=== PATIENT | male | born 1945 | race Asian ===

== ENCOUNTER 2020-04-17 15:39 | Emergency (ER) | payer OTHER ==
[~2020-04-17] VITALS: Ht 177.8 cm; Wt 68.0 kg
[2020-04-17 16:00] VITALS: BP_SYST 128
--- NOTE | 2020-04-17 16:00 | NUR ---
Patient triaged and placed in ER tent. VSS and patient appears in no acute distress at this time. Awaiting available bed, and MD notified of need for MSE.
--- NOTE | 2020-04-17 16:01 | NUR ---
Patient was recently diagnosed with COVID-19 and is complaining of sore throat and fever controlled with tylenol. No other complaints at this time.
--- NOTE | 2020-04-17 16:02 | NUR ---
ER Dr. Jung in tent examining patient.
[2020-04-17 16:15] VITALS: BP_SYST 128
--- NOTE | 2020-04-17 16:15 | NUR ---
Patient given written and verbal discharge instructions and verbalizes understanding. ER MD discussed with patient the results and treatment provided. Patient in stable condition. ID arm band removed. Rx of hydroxychloroquine,dexamethasone given. Patient educated on pain management and to follow up with PMD. Pain Scale 3/10, Dr. Jung is aware. Opportunity for questions provided and answered. Medication side effect fact sheet provided.
== END 2020-04-17 16:15 | disposition home or self-care (01) ==
LOC: SED 15:39
DX: U07.1 COVID-19 (principal); B34.9 Viral infection, unspecified; E11.9 Type 2 diabetes mellitus without complications
CPT/HCPCS: 99283

== ENCOUNTER 2020-04-21 08:39 | Inpatient (IN) | payer OTHER, SELFPAY ==
[~2020-04-21] VITALS: Ht 177.8 cm; Wt 67.1 kg
[2020-04-21 08:53] VITALS: BP_SYST 124
--- NOTE | 2020-04-21 09:47 | NUR ---
AMBULATED TO BED 5
--- NOTE | 2020-04-21 10:00 | NUR ---
PT ARRIVES FROM HOME W/ INCREASING SOB AND COUGH. PT REPORTS MILD FEVER. CURRENTLY AFEBRILE. BONE CRUSHER PLACED. WILL CONTINUE TO MONITOR
--- NOTE | 2020-04-21 10:28 | NUR ---
covid swab collected and sent to the lab
[2020-04-21] MEDS ORDERED: cefTRIAXone 1 GM in D5W 50 ML IV ONE (10:30)
[2020-04-21] MEDS ORDERED: AZITHROMYCIN 500 MG in NS 250 ML IV ONE (10:30)
[2020-04-21 10:33] LABS: BASOPHILS % (AUTO) 0.1 % (0.0-2.0); HEMATOCRIT 43.9 % (36-54); HEMOGLOBIN 14.7 g/dL (14.0-18.0); LYMPHOCYTES # (AUTO) 0.3 K/uL (1.0-5.5); LYMPHOCYTES % (AUTO) 4.1 % (20.5-51.5); MEAN CORPUSCULAR HEMOGLOBIN 30 pg (27-31); MEAN CORPUSCULAR HGB CONC 33 % (32-36); MEAN CORPUSCULAR VOLUME 88 fL (79.0-98.0); MONOCYTES # (AUTO) 0.4 K/uL (0.0-1.0); MONOCYTES % (AUTO) 5.5 % (1.7-9.3); NEUTROPHILS # (AUTO) 6.3 K/uL (1.8-7.7); NEUTROPHILS % (AUTO) 90.3 % (40.0-70.0); PLATELET COUNT (AUTO) 319 K/uL (130-430); RED BLOOD CELL COUNT(AUTO) 4.97 MIL/uL (4.2-6.2); RED CELL DISTRIBUTION WIDTH 13.7 % (9.0-15.0)
[2020-04-21 10:37] LABS: ANION GAP 13 (5-15); CALCIUM 9.1 mg/dL (8.4-11.0); CHLORIDE 99 mmol/L (98-107); CREATININE 0.96 mg/dL (0.55-1.30); GLUCOSE 179 mg/dL (70-99); POTASSIUM 4.6 mmol/L (3.5-5.1); SODIUM SERUM 135 mmol/L (136-145); UREA NITROGEN, BLOOD 31 mg/dL (8-21)
[2020-04-21 10:42] LABS: ALANINE AMINOTRANSFERASE 25 U/L (12-78); ALBUMIN 2.6 g/dL (3.4-4.8); ASPARTATE AMINOTRANSFERASE 34 U/L (10-37); LACTATE DEHYDROGENASE 405 U/L (85-227); TOTAL BILIRUBIN 0.7 mg/dL (0.0-1.0)
[2020-04-21 10:43] LABS: PROTHROMBIN TIME 9.8 SECS (9.5-12.5)
[2020-04-21] MEDS ORDERED: PIPERACILLIN/TAZO 3.375 GM in NS 50 ML IV ONE (10:45)
[2020-04-21] MEDS ORDERED: VANCOMYCIN HCL 1,000 MG in NS 250 ML IV ONE (10:45)
[2020-04-21 10:55] LABS: C-REACTIVE PROTEIN QUANT 5.7 mg/dL (0-0.5)
[2020-04-21] MEDS ORDERED: PIPERACILLIN/TAZOBACTAM 3.375 GM/VIAL (ZOSYN) IV ONE (11:07)
--- NOTE | 2020-04-21 11:21 | NUR ---
Zosyn currently infusing per md order
[2020-04-21] MEDS ORDERED: VANCOMYCIN HCL 1000 MG/VIAL IV ONE (11:56)
[2020-04-21 12:21] LABS: BILIRUBIN,URINE NEGATIVE (NEGATIVE); BLOOD, URINE NEGATIVE (NEGATIVE); CLARITY/URINE CLEAR (CLEAR); COLOR,URINE YELLOW (YELLOW); GLUCOSE,URINE 3+ (NEGATIVE); KETONES,URINE 1+ (NEGATIVE); LEUKOCYTE ESTERASE ,URINE NEGATIVE (NEGATIVE); NITRITE, URINE NEGATIVE (NEGATIVE); PROTEIN URINE TRACE (NEGATIVE); UROBILINOGEN,URINE 0.2 (0.2-1.0)
--- NOTE | 2020-04-21 12:30 | NUR ---
CARE ENDORSED TO BRANDY EPSTEIN
--- NOTE | 2020-04-21 12:39 | NUR ---
ELYSIA TO ASSUME CARE, CALM, ALERT, RESP UNLABORED, SKIN WARM AND DRY. CLEAR MENTATION AND SPEECH. DENIES CP/SOB. AWARE OF ADMISSION, UPDATE GIVEN
--- NOTE | 2020-04-21 13:22 | NUR ---
COVID SWAB COLLECTED AND SENT TO LAB
--- NOTE | 2020-04-21 13:45 | NUR ---
calm, alert, resp unlabored, skin warm and dry. communicates clearly in full complete sentences, no distress, denies cp/sob
[2020-04-21] MEDS ORDERED: POTASSIUM CHLORIDE 20 MEQ TAB.PRT.SR PO PRN (14:00)
[2020-04-21] MEDS ORDERED: ONDANSETRON HCL 4 MG/2 ML VIAL IVP PRN (14:00)
[2020-04-21] MEDS ORDERED: LORazepam 2 MG/ML VIAL IVP PRN (14:00)
[2020-04-21] MEDS ORDERED: DOCUSATE SODIUM 100 MG CAPSULE PO PRN (14:00)
[2020-04-21] MEDS ORDERED: ACETAMINOPHEN 325 MG TABLET PO PRN (14:00)
[2020-04-21] MEDS ORDERED: MUPIROCIN 2% TOPICAL OINTMENT 22 GM NS PRN (14:00)
[2020-04-21] MEDS ORDERED: MAGNESIUM SULFATE 50 ML IV PRN (14:00)
--- NOTE | 2020-04-21 15:20 | NUR ---
CONSULT: PAGED DR SMITH BY PAGER REASON FOR CONSULT- COVID PNA
--- NOTE | 2020-04-21 15:21 | NUR ---
CONSULT: PAGED DR POST SPOKE WITH WOJCIECH REASON FOR CONSULT- COVID PNA
[2020-04-21] MEDS: NACL 0.9% 1,000 ML IV SCH (16:12)
[2020-04-21] MEDS: ENOXAPARIN SODIUM 80 MG/0.8 ML SYRINGE SUBCUT SCH (16:13)
[2020-04-21] MEDS: DECADRON 4 MG TABLET PO SCH (16:13)
[2020-04-21] MEDS ORDERED: ASCORBIC ACID 500 MG TABLET PO ONE (16:15)
[2020-04-21] MEDS ORDERED: CHOLECALCIFEROL (VITAMIN D3) 2,000 UNIT TABLET PO ONE (16:15)
[2020-04-21] MEDS: ASCORBIC ACID 500 MG TABLET PO SCH ×2 (17:46→20:01)
--- NOTE | 2020-04-21 18:03 | NUR ---
ALERT, CALM, EASILY AROUSED, RESP UNLABORED, SKIN WARM AND DRY. TOLERATING PO WELL
--- NOTE | 2020-04-21 18:13 | NUR ---
BLOOD CONSENT OBTAINED
--- NOTE | 2020-04-21 19:23 | NUR ---
SITTING UP EATING MEAL. CALM, ALERT, NO DISTRESS, DENIES CP/SOB
[2020-04-21] MEDS ORDERED: cefTRIAXone 1 GM VIAL ONE (19:55)
[2020-04-21] MEDS: cefTRIAXone 1 GM in D5W 50 ML IV SCH (20:00)
[2020-04-21] MEDS ORDERED: ASCORBIC ACID 500 MG TABLET PO SCH (21:00)
--- NOTE | 2020-04-21 21:25 | NUR ---
PLASMA STARTED, SEPTEMBER TO COSIGN
--- NOTE | 2020-04-21 23:17 | NUR ---
CONVALESCENT PLASMA COMPLETED, TOLERATED WELL
--- NOTE | 2020-04-21 23:36 | NUR ---
Note hussain in EDM - 04/21/20 at 2337 by [id number] Patient will be admitted to care of Dr. Weston. Admitted to TELE unit. Will go to room 123. Belongings list completed. Complete and up to date summary report printed. SBAR report to be given at bedside with opportunity for questions.
--- NOTE | 2020-04-21 23:37 | NUR ---
Patient will be admitted to care of Dr. Weston. Admitted to TELE unit. Will go to room 126B. Belongings list completed. Complete and up to date summary report printed. SBAR report to be given at bedside with opportunity for questions.
--- NOTE | 2020-04-21 23:53 | NUR ---
ADMIT NOTE Received pt from ER to the floor with a diagnosis of covid pna. Admission process initiated. patient oriented to pain management, safety and call light-teach back done.
--- NOTE | 2020-04-22 00:30 | NUR ---
INITIAL NOTE PT IS ON BED, ALERT, AWAKE, ORIENTED X 4. NO PAIN. NO SOB AT REST, PT IS ON O2 4L VIA NC SATING 90% VITAL SIGN ARE WNL. IVF INFUSING TO RIGHT AC. NO SIGN OF INFILTRATION. NO SKIN BREAKDOWN. DISCUSS TO PT PLAN OF CARE AND HIS MEDICATION. DISCUSS ABOUT HIS COVID ISOLATION. PT VERBALIZED UNDERSTANDING. NEEDS ATTENDED. CALL LIGHT IN REACH, SIDE RAILS UP LOW BED POSITION AND ALARM COVID ISOLATION. WILL MONITOR. PT THROUGHOUT THE SHIFT.
[2020-04-22] MEDS: ZOLPIDEM TARTRATE 5 MG TABLET PO PRN (00:49)
[2020-04-22 01:40] VITALS: BP_SYST 142
--- NOTE | 2020-04-22 02:06 | NUR ---
SLEEPING, COMFORTABLE, NO SIGN OF DISTRESS. STABLE O2 ON MONITOR, PT IS ON SIMPLE MASK AT 6L TO KEEP O2 ABOVE 90%. NEEDS ATTENDED. COVID ISOLATION.
[2020-04-22] MEDS: NACL 0.9% 1,000 ML IV SCH ×2 (02:17→14:56)
[2020-04-22] MEDS: ENOXAPARIN SODIUM 80 MG/0.8 ML SYRINGE SUBCUT SCH ×2 (02:17→14:50)
--- NOTE | 2020-04-22 03:27 | NUR ---
PAGED PAGED DOCTOR POST
--- NOTE | 2020-04-22 03:28 | NUR ---
page dr. almanzar- to clarify the convalescent plasma. waiting for call back.
--- NOTE | 2020-04-22 04:00 | NUR ---
pt is resting, no sob, not distress. no cough, 98% o2 saturation on mask at 6l. covid isolation.
--- NOTE | 2020-04-22 06:03 | NUR ---
sleeping, comfortable. no sob, no cough, covid isolation.
--- NOTE | 2020-04-22 06:20 | NUR ---
COVID PLASMA INITIATION: Consent signed per patient agreeing to administration of blood. Blood has been type and crossmatched. Blood sent from blood bank. Information on unit of blood checked against patient wristband at bedside by two nurses. All information matches. Patient or responsible democrat informed of potential complications associated with blood transfusion. Informed of possible transfusion reaction symptoms. Aware of need to notify nurse at once of itching, shortness of breath, flushing, feeling of impending doom, or other symptoms not previously present. Vital signs taken within 5 minutes prior to initiation of transfusion. RN will remain with patient for first 15 minutes of transfusion at which time vital signs will be re-assessed.
--- NOTE | 2020-04-22 07:38 | NUR ---
closing; pt is resting, no sob, no distress. convalescent plasma completed no transfusion reaction, stable vital sign. needs attended, covid isolation. call light in reach side rails up. low bed position. sbar report given to margot alex.
[2020-04-22 07:41] VITALS: BP_SYST 135
--- NOTE | 2020-04-22 08:00 | NUR ---
Received patient alert oriented on facemask 4 liter , changed to nasal cannula 6 liter while eating oxygen saturation 89%, patient is weak needs help to go edge of the bed to urinate, fall risk safety/fall precaution initiated verbalized understanding, needs attended.
[2020-04-22 08:01] LABS: BASOPHILS % (AUTO) 0.1 % (0.0-2.0); HEMATOCRIT 41.5 % (36-54); HEMOGLOBIN 13.4 g/dL (14.0-18.0); LYMPHOCYTES # (AUTO) 0.5 K/uL (1.0-5.5); LYMPHOCYTES % (AUTO) 6.8 % (20.5-51.5); MEAN CORPUSCULAR HEMOGLOBIN 29 pg (27-31); MEAN CORPUSCULAR HGB CONC 32 % (32-36); MEAN CORPUSCULAR VOLUME 90 fL (79.0-98.0); MONOCYTES # (AUTO) 0.3 K/uL (0.0-1.0); MONOCYTES % (AUTO) 3.5 % (1.7-9.3); NEUTROPHILS # (AUTO) 6.8 K/uL (1.8-7.7); NEUTROPHILS % (AUTO) 89.6 % (40.0-70.0); PLATELET COUNT (AUTO) 297 K/uL (130-430); RED BLOOD CELL COUNT(AUTO) 4.61 MIL/uL (4.2-6.2); RED CELL DISTRIBUTION WIDTH 13.2 % (9.0-15.0); WHITE BLOOD COUNT (AUTO) 7.5 K/uL (4.8-10.8)
[2020-04-22] MEDS: CHOLECALCIFEROL (VITAMIN D3) 2,000 UNIT TABLET PO SCH (08:05)
[2020-04-22] MEDS: AZITHROMYCIN 250 MG TABLET PO SCH (08:05)
[2020-04-22] MEDS: ASCORBIC ACID 500 MG TABLET PO SCH ×3 (08:05→21:10)
[2020-04-22 08:12] LABS: ALANINE AMINOTRANSFERASE 24 U/L (12-78); ALBUMIN 2.3 g/dL (3.4-4.8); ANION GAP 7 (5-15); ASPARTATE AMINOTRANSFERASE 27 U/L (10-37); BILIRUBIN,DIRECT 0.2 mg/dL (0.0-0.3); CALCIUM 8.4 mg/dL (8.4-11.0); CHLORIDE 103 mmol/L (98-107); CREATININE 0.93 mg/dL (0.55-1.30); GLUCOSE 83 mg/dL (70-99); POTASSIUM 3.8 mmol/L (3.5-5.1); SODIUM SERUM 139 mmol/L (136-145); TOTAL BILIRUBIN 0.4 mg/dL (0.0-1.0); UREA NITROGEN, BLOOD 22 mg/dL (8-21)
[2020-04-22 08:20] LABS: C-REACTIVE PROTEIN QUANT 2.9 mg/dL (0-0.5)
[2020-04-22] MEDS ORDERED: ASCORBIC ACID 500 MG TABLET PO SCH (09:00)
[2020-04-22 09:49] LABS: ERYTHROCYTE SEDIMENTATION RATE 43 MM/HR (0-15)
--- NOTE | 2020-04-22 10:15 | NUR ---
Respiratory Facemask hanged to Oxymizer 8/liter saturation 98 %, kept on continuos pulse oximeter.
[2020-04-22 11:29] VITALS: BP_SYST 141
--- NOTE | 2020-04-22 11:30 | NUR ---
Rounds With frequent dry cough, oxygen saturation 98% with 8 liters/oximizer , encouraged patient to lie to side intermittently , or proning if tolerated verbalized understanding.
--- NOTE | 2020-04-22 13:48 | NUR ---
To bedside commode with minimal assistance with generalized weakness,had bowel movement perineal care given .
--- NOTE | 2020-04-22 14:30 | NUR ---
Per Dr. Hendrickson total of 2 units of convalescent plasma only.
[2020-04-22] MEDS: DECADRON 4 MG TABLET PO SCH (14:50)
[2020-04-22 14:59] VITALS: BP_SYST 147
--- NOTE | 2020-04-22 15:52 | NUR ---
PATIENT RESTING: Patient resting quietly. No acute distress noted. Vital signs within normal range.
[2020-04-22] MEDS: guaiFENesin 200 MG/10 ML UDC PO PRN ×2 (15:53→21:10)
[2020-04-22 16:09] VITALS: BP_SYST 147
[2020-04-22] MEDS: cefTRIAXone 1 GM in D5W 50 ML IV SCH (16:25)
[2020-04-22] MEDS ORDERED: FENO160 PO (18:23)
[2020-04-22] MEDS ORDERED: [UNRECOGNIZED DRUG - OTHER] PO (18:23)
[2020-04-22] MEDS ORDERED: [UNRECOGNIZED DRUG - OTHER] PO (18:23)
[2020-04-22] MEDS ORDERED: GLU500 PO (18:23)
[2020-04-22] MEDS ORDERED: Toujeo SUBCUT (18:23)
--- NOTE | 2020-04-22 18:23 | NUR ---
ALL home medication list was given by Britany phone no. [phone]
--- NOTE | 2020-04-22 18:24 | NUR ---
Patient eating dinner no sign of acute distress oxygen saturation 93% with 8 liters/oximizer
--- NOTE | 2020-04-22 19:10 | NUR ---
OPENING NOTE: RECEIVED SBAR REPORT FROM DAY SHIFT RN. PATIENT IS RESTING IN THE BED. BREATHING EVEN AND UNLABORED ON 8 L OF OXYMIZER. NO S/S ACUTE DISTRESS NOTED AT THIS TIME. IVF INFUSING ORDERED RATE. VITAL SIGNS WITHIN NORMAL LIMITS. SAFETY AND FALL PRECAUTIONS IN PLACE. CALL LIGHT IS WITH PATIENT. WILL CONTINUE TO MONITOR.
[2020-04-22 20:00] VITALS: BP_SYST 110
--- NOTE | 2020-04-22 21:15 | NUR ---
MED PASS: PATIENT GIVEN SCHEDULED MEDS. PATIENT TOLERATED TAKING PO MEDS WELL. NO S/S ACUTE DISTRESS NOTED AT THIS TIME. WILL CONTINUE MONITORING PATIENT.
--- NOTE | 2020-04-22 23:15 | NUR ---
RN ROUNDS: PATIENT IS IN THE BED, SLEEPING. NO S/S RESPIRATORY DISTRESS NOTED AT THIS TIME. SAFETY PRECAUTIONS IN PLACE. CALL LIGHT IS WITH PATIENT. WILL MONITOR PATIENT FOR ANY CHANGES.
[2020-04-23] VITALS: BP_SYST 133
--- NOTE | 2020-04-23 00:45 | NUR ---
RN ROUNDS: PATIENT IS IN THE BED, SLEEPING AND STABLE. NO S/S ACUTE DISTRESS NOTED. CALL LIGHT IS WITH PATIENT. WILL MONITOR PATIENT FOR ANY CHANGES.
[2020-04-23] MEDS: ENOXAPARIN SODIUM 80 MG/0.8 ML SYRINGE SUBCUT SCH ×2 (02:10→13:41)
--- NOTE | 2020-04-23 02:17 | NUR ---
RN ROUNDS: PATIENT IS BREATHING UNLABORED AND EVEN ON 8 L OF OXIMIZER. PATIENT DOES NOT EXHIBIT ANY S/S ACUTE DISTRESS AT THIS TIME. CALL LIGHT IS WITH PATIENT. WILL MONITOR.
[2020-04-23] MEDS: NACL 0.9% 1,000 ML IV SCH ×2 (03:30→16:34)
--- NOTE | 2020-04-23 04:22 | NUR ---
RN ROUNDS: PATIENT IS IN THE BED. STABLE, NO S/S ACUTE DISTRESS NOTED AT THIS TIME. CALL LIGHT IS WITH PATIENT. FALL AND SAFETY PRECAUTIONS MAINTAINED. WILL MONITOR.
--- NOTE | 2020-04-23 07:07 | NUR ---
CLOSING NOTE: PATIENT IN BED, SLEEPING. NO S/S ACUTE DISTRESS NOTED. RESPIRATION IS EVEN AND UNLABORED ON 8 L OF OXYGEN VIA OXYMIZER. IVF INFUSING ORDERED RATE. NO SIGN OF INFILTRATION NOTED. SAFETY AND FALL PRECAUTIONS MAINTAINED. ALL NEEDS MET. ENDORSED PATIENT CARE TO DAY SHIFT RN.
[2020-04-23 07:43] LABS: HEMATOCRIT 42.8 % (36-54); LYMPHOCYTES # (AUTO) 0.4 K/uL (1.0-5.5); LYMPHOCYTES % (AUTO) 7.9 % (20.5-51.5); MEAN CORPUSCULAR HEMOGLOBIN 29 pg (27-31); MEAN CORPUSCULAR HGB CONC 33 % (32-36); MEAN CORPUSCULAR VOLUME 90 fL (79.0-98.0); MONOCYTES # (AUTO) 0.2 K/uL (0.0-1.0); MONOCYTES % (AUTO) 3.5 % (1.7-9.3); NEUTROPHILS # (AUTO) 4.6 K/uL (1.8-7.7); NEUTROPHILS % (AUTO) 88.6 % (40.0-70.0); PLATELET COUNT (AUTO) 308 K/uL (130-430); RED BLOOD CELL COUNT(AUTO) 4.75 MIL/uL (4.2-6.2); RED CELL DISTRIBUTION WIDTH 13.2 % (9.0-15.0); WHITE BLOOD COUNT (AUTO) 5.1 K/uL (4.8-10.8)
[2020-04-23 08:02] LABS: ALANINE AMINOTRANSFERASE 22 U/L (12-78); ALBUMIN 2.2 g/dL (3.4-4.8); ANION GAP 7 (5-15); ASPARTATE AMINOTRANSFERASE 27 U/L (10-37); BILIRUBIN,DIRECT 0.1 mg/dL (0.0-0.3); CALCIUM 8.6 mg/dL (8.4-11.0); CHLORIDE 104 mmol/L (98-107); CREATININE 0.83 mg/dL (0.55-1.30); GLUCOSE 97 mg/dL (70-99); POTASSIUM 3.8 mmol/L (3.5-5.1); SODIUM SERUM 140 mmol/L (136-145); TOTAL BILIRUBIN 0.4 mg/dL (0.0-1.0); UREA NITROGEN, BLOOD 21 mg/dL (8-21)
--- NOTE | 2020-04-23 08:10 | NUR ---
Respiratory Resting in bed with occasional dry cough, oxygen saturation 93 to 95 % on 8 liters via Oxymizer, breakfast served tolerates 50 % no aspiration , plan of care,hygiene and safety discussed with patient verbalized understanding.
[2020-04-23] MEDS: AZITHROMYCIN 250 MG TABLET PO SCH (08:14)
[2020-04-23] MEDS: ASCORBIC ACID 500 MG TABLET PO SCH ×3 (08:14→21:00)
[2020-04-23] MEDS: CHOLECALCIFEROL (VITAMIN D3) 2,000 UNIT TABLET PO SCH (08:14)
[2020-04-23 08:23] VITALS: BP_SYST 132
[2020-04-23 08:30] LABS: C-REACTIVE PROTEIN QUANT 5.9 mg/dL (0-0.5)
--- NOTE | 2020-04-23 09:20 | NUR ---
Skin care/comfort TSB given , chest physiotherapy upper back, no sign of pressure sore, needs attended.
[2020-04-23 10:38] LABS: ERYTHROCYTE SEDIMENTATION RATE 44 MM/HR (0-15)
[2020-04-23 11:31] VITALS: BP_SYST 140
--- NOTE | 2020-04-23 13:20 | NUR ---
Seen and examined by Dr. Hendrickson patient breathing much better coughing is less , oxygen saturation maintaining above 93%, will monitor.
[2020-04-23] MEDS: DECADRON 4 MG TABLET PO SCH (13:41)
[2020-04-23 15:39] VITALS: BP_SYST 153
--- NOTE | 2020-04-23 16:30 | NUR ---
Snacks served as requested by the patient , able to move no SOB,encouraged to sit in the chair or edge of the bed for good lung expansion verbalized understanding.
[2020-04-23] MEDS: cefTRIAXone 1 GM in D5W 50 ML IV SCH (17:04)
[2020-04-23 19:45] VITALS: BP_SYST 129
--- NOTE | 2020-04-23 19:45 | NUR ---
INITIAL NOTE AT INITIAL ASSESSMENT, PATIENT IS RESTING IN BED, STABLE, NO SIGNS OF RESPIRATORY DISTRESS. PATIENT VERBALIZES NO PAIN. PLAN OF CARE FOR THE EVENING IS COMMUNICATED WITH THE PATIENT. PATIENT DEMONSTRATES CORRECT USAGE OF CALL LIGHT AT THIS TIME. BED IS LOCKED, ALARMED, AND AT THE LOWEST LEVEL. FALL SAFETY EDUCATION PROVIDED. FALL, SAFETY, ISOLATION, AND RESPIRATORY PRECAUTIONS WILL BE TAKEN THROUGHOUT THE SHIFT.
[2020-04-23] MEDS: ZOLPIDEM TARTRATE 5 MG TABLET PO PRN (22:00)
[2020-04-23] MEDS: guaiFENesin 200 MG/10 ML UDC PO PRN (22:00)
[2020-04-24] VITALS: BP_SYST 128
[2020-04-24] MEDS: NACL 0.9% 1,000 ML IV SCH ×2 (04:30→17:00)
--- NOTE | 2020-04-24 06:45 | NUR ---
CLOSING NOTE PATIENT SLEPT WELL THROUGHOUT THE SHIFT, NO SHORTNESS OF BREATH NOTED. AT THIS TIME, PATIENT IS RESTING IN BED, STABLE, NO SIGNS OF RESPIRATORY DISTRESS. CALL LIGHT IS WITHIN REACH. BED IS LOCKED, ALARMED, AND AT THE LOWEST LEVEL. FALL, SAFETY, ISOLATION, AND RESPIRATORY PRECAUTIONS HAVE BEEN TAKEN THROUGHOUT THE SHIFT. WILL CONTINUE TO MONITOR UNTIL SHIFT REPORT IS GIVEN AT BEDSIDE TO AM NURSE.
--- NOTE | 2020-04-24 07:35 | NUR ---
Nutrition Update Pako Scale 17 noted. Pt admitted for COVID-19 Pneumonia Diet: Regular BMI: 21.2 kg/m2 RD to follow per nutrition care standards.
--- NOTE | 2020-04-24 08:00 | NUR ---
AM ROUNDS: PATIENT ON SEMI VICENTE'S POSITION. ON OXYMIZER @ 8L/OK,WITH GOOD SATURATION. CALL LIGHT WITH IN REACH. BED LOCKED AT LOWEST POSITION. NO DISTRESS.
[2020-04-24] MEDS: CHOLECALCIFEROL (VITAMIN D3) 2,000 UNIT TABLET PO SCH (09:07)
[2020-04-24] MEDS: ASCORBIC ACID 500 MG TABLET PO SCH ×3 (09:07→20:56)
[2020-04-24] MEDS: AZITHROMYCIN 250 MG TABLET PO SCH (09:08)
[2020-04-24] MEDS: ENOXAPARIN SODIUM 40 MG/0.4 ML SYRINGE SUBCUT SCH (09:09)
[2020-04-24 09:25] VITALS: BP_SYST 129
[2020-04-24 10:00] LABS: BASOPHILS % (AUTO) 0.1 % (0.0-2.0); EOSINOPHILS % (AUTO) 0.3 % (0.0-4.0); HEMATOCRIT 46.4 % (36-54); HEMOGLOBIN 15.1 g/dL (14.0-18.0); LYMPHOCYTES # (AUTO) 0.5 K/uL (1.0-5.5); MEAN CORPUSCULAR HEMOGLOBIN 29 pg (27-31); MEAN CORPUSCULAR HGB CONC 33 % (32-36); MEAN CORPUSCULAR VOLUME 89 fL (79.0-98.0); MONOCYTES # (AUTO) 0.2 K/uL (0.0-1.0); MONOCYTES % (AUTO) 2.8 % (1.7-9.3); NEUTROPHILS # (AUTO) 6.2 K/uL (1.8-7.7); NEUTROPHILS % (AUTO) 89.8 % (40.0-70.0); PLATELET COUNT (AUTO) 367 K/uL (130-430); RED CELL DISTRIBUTION WIDTH 13.4 % (9.0-15.0); WHITE BLOOD COUNT (AUTO) 6.9 K/uL (4.8-10.8)
[2020-04-24 10:16] LABS: ALANINE AMINOTRANSFERASE 22 U/L (12-78); ALBUMIN 2.3 g/dL (3.4-4.8); ANION GAP 8 (5-15); ASPARTATE AMINOTRANSFERASE 29 U/L (10-37); CALCIUM 8.8 mg/dL (8.4-11.0); CHLORIDE 104 mmol/L (98-107); CREATININE 0.73 mg/dL (0.55-1.30); GLUCOSE 163 mg/dL (70-99); POTASSIUM 3.9 mmol/L (3.5-5.1); SODIUM SERUM 140 mmol/L (136-145); TOTAL BILIRUBIN 0.4 mg/dL (0.0-1.0); UREA NITROGEN, BLOOD 19 mg/dL (8-21)
[2020-04-24 10:48] LABS: ERYTHROCYTE SEDIMENTATION RATE 38 MM/HR (0-15)
[2020-04-24 11:28] LABS: C-REACTIVE PROTEIN QUANT 6.7 mg/dL (0-0.5)
[2020-04-24 12:30] VITALS: BP_SYST 130
[2020-04-24] MEDS: DECADRON 4 MG TABLET PO SCH (14:25)
--- NOTE | 2020-04-24 14:40 | NUR ---
Dietitian Recommendations *Recommend: add Ensure Enlive BID. *Continue Regular diet and immune boosters as ordered. *Monitor BG, consider CCHO diet if BG trends up. (??Dx of possible DM) Please see Nutritional Assessment for details. BARBI DE LA FUENTE
[2020-04-24 16:00] VITALS: BP_SYST 134
[2020-04-24] MEDS: cefTRIAXone 1 GM in D5W 50 ML IV SCH (19:25)
--- NOTE | 2020-04-24 19:27 | NUR ---
CLOSING NOTES: ENDORSED TO NIGHT NURSE IRIS Kauffman PATIENT IN STABLE CONDITION. CALL LIGHT WITH IN REACH. BED LOCKED AT LOWEST POSITION. MAINTAINED OXIMIZER @ 8L/MIN.WITH GOOD SATURATION.
[2020-04-24 20:30] VITALS: BP_SYST 131
--- NOTE | 2020-04-24 20:30 | NUR ---
Opening notes Pt AAOx4, no s/s distress or sob noted. O2 via 8L oxymizer saturation at 93%. Pt voids using urinal at bedside. IV antibiotic adminstered at ordered rate R. hand 20G clear and patent. Call light within reach. Bed low, locked, siderails up x3. Covid isolation maintained. To monitor.
--- NOTE | 2020-04-24 23:30 | NUR ---
Rounds Pt awake, no s/s distress noted. IVF infusing at ordered rate R hand no s/s inifiltration noted. Call light within reach. To monitor.
[2020-04-25] VITALS: BP_SYST 135
--- NOTE | 2020-04-25 01:30 | NUR ---
Rounds Pt asleep, no s/s distress noted. IVF infusing at ordered rate R. hand 20G clear and patent. Call light within reach. Bed maintained low, locked, siderails up x3. To monitor.
--- NOTE | 2020-04-25 05:35 | NUR ---
Closing notes Pt asleep, no s/s distress or sob noted. O2 via 8L oxymizer saturation at 93-98%. Pt voids using urinal at bedside. IVF infusing at ordered rate R. hand 20G clear and patent. Call light within reach. Bed low, locked, siderails up x3. Covid isolation maintained. To endorse to AM nurse.
[2020-04-25] MEDS: NACL 0.9% 1,000 ML IV SCH ×2 (06:51→18:34)
[2020-04-25 06:56] LABS: BASOPHILS % (AUTO) 0.2 % (0.0-2.0); EOSINOPHILS % (AUTO) 0.4 % (0.0-4.0); HEMATOCRIT 43.3 % (36-54); HEMOGLOBIN 14.4 g/dL (14.0-18.0); LYMPHOCYTES # (AUTO) 0.4 K/uL (1.0-5.5); LYMPHOCYTES % (AUTO) 7.2 % (20.5-51.5); MEAN CORPUSCULAR HEMOGLOBIN 29 pg (27-31); MEAN CORPUSCULAR HGB CONC 33 % (32-36); MEAN CORPUSCULAR VOLUME 88 fL (79.0-98.0); MONOCYTES # (AUTO) 0.1 K/uL (0.0-1.0); MONOCYTES % (AUTO) 2.4 % (1.7-9.3); NEUTROPHILS # (AUTO) 4.9 K/uL (1.8-7.7); NEUTROPHILS % (AUTO) 89.8 % (40.0-70.0); PLATELET COUNT (AUTO) 370 K/uL (130-430); RED BLOOD CELL COUNT(AUTO) 4.91 MIL/uL (4.2-6.2); WHITE BLOOD COUNT (AUTO) 5.5 K/uL (4.8-10.8)
[2020-04-25 07:32] LABS: ALANINE AMINOTRANSFERASE 34 U/L (12-78); ALBUMIN 2.2 g/dL (3.4-4.8); ANION GAP 3 (5-15); ASPARTATE AMINOTRANSFERASE 26 U/L (10-37); BILIRUBIN,DIRECT 0.2 mg/dL (0.0-0.3); CALCIUM 8.7 mg/dL (8.4-11.0); CHLORIDE 104 mmol/L (98-107); CREATININE 0.85 mg/dL (0.55-1.30); GLUCOSE 218 mg/dL (70-99); POTASSIUM 4.3 mmol/L (3.5-5.1); SODIUM SERUM 139 mmol/L (136-145); TOTAL BILIRUBIN 0.4 mg/dL (0.0-1.0); UREA NITROGEN, BLOOD 21 mg/dL (8-21)
--- NOTE | 2020-04-25 08:00 | NUR ---
AM ROUNDS: PATIENT ON SEMI VICENTE'S POSITION,AWAKE,ALERT AND ORIENTED X4. MAINTAINED AIRBORNE DROPLET CONTACT ISOLATION PRECAUTION. CALL LIGHT WITH IN REACH. BED LOCKED AT LOWEST POSITION. CONDITION GUARDED.
[2020-04-25 08:14] LABS: ERYTHROCYTE SEDIMENTATION RATE 32 MM/HR (0-15)
[2020-04-25] MEDS: AZITHROMYCIN 250 MG TABLET PO SCH (08:14)
[2020-04-25] MEDS: CHOLECALCIFEROL (VITAMIN D3) 2,000 UNIT TABLET PO SCH (08:14)
[2020-04-25] MEDS: ASCORBIC ACID 500 MG TABLET PO SCH ×3 (08:14→20:51)
[2020-04-25 08:17] LABS: C-REACTIVE PROTEIN QUANT 4.7 mg/dL (0-0.5)
[2020-04-25 08:20] VITALS: BP_SYST 136
[2020-04-25] MEDS: ENOXAPARIN SODIUM 40 MG/0.4 ML SYRINGE SUBCUT SCH (09:00)
[2020-04-25 12:39] VITALS: BP_SYST 130
[2020-04-25 15:09] VITALS: BP_SYST 130
[2020-04-25] MEDS: DECADRON 4 MG TABLET PO SCH (15:14)
[2020-04-25 16:14] VITALS: BP_SYST 136
[2020-04-25] MEDS: cefTRIAXone 1 GM in D5W 50 ML IV SCH (18:35)
--- NOTE | 2020-04-25 19:06 | NUR ---
SON CALLED: UPDATE GIVEN TO PT'S SON OSCAR.
--- NOTE | 2020-04-25 19:15 | NUR ---
END OF SHIFT: ENDORSED TO NIGHT NURSE IRIS,PATIENT IN STABLE CONDITION. SAFETY MEASURES RENDERED. MAINTAINED ON OXYMIZER @ 6L/MIN,GOOD SATURATION.
--- NOTE | 2020-04-25 19:40 | NUR ---
Opening notes Pt AAOx4, no s/s distress or sob noted. O2 via 6L oxymizer saturation at 95%. IVF infusing at ordered rate R. hand 20G clear and patent. Call light within reach. Bed low, locked, siderails up x3. Covid isolation maintained. To monitor.
[2020-04-25 20:00] VITALS: BP_SYST 114
--- NOTE | 2020-04-25 20:51 | NUR ---
Rounds Pt awake, watching TV no s/s distress noted. Call light within reach. Bed maintained low, locked, siderails up x3. To monitor.
[2020-04-26 00:20] VITALS: BP_SYST 101
--- NOTE | 2020-04-26 00:20 | NUR ---
Rounds Pt awake, VSS, afebrile, no s/s distress noted. IVF infusing at ordered rate R hand no s/s inifiltration noted. Call light within reach. Covid isolation maintained. To monitor.
--- NOTE | 2020-04-26 05:28 | NUR ---
Closing notes Pt asleep, no s/s distress or sob noted. O2 via 6L oxymizer saturation at 94-98%. IVF infusing at ordered rate R. hand 20G no s/s infiltration. Call light/items within reach. Bed low, locked, siderails up x3. Covid isolation maintained. To endorse to AM nurse plan of care.
[2020-04-26 07:04] LABS: EOSINOPHILS % (AUTO) 0.2 % (0.0-4.0); HEMATOCRIT 40.1 % (36-54); HEMOGLOBIN 13.5 g/dL (14.0-18.0); LYMPHOCYTES # (AUTO) 0.3 K/uL (1.0-5.5); LYMPHOCYTES % (AUTO) 5.2 % (20.5-51.5); MEAN CORPUSCULAR HEMOGLOBIN 30 pg (27-31); MEAN CORPUSCULAR HGB CONC 34 % (32-36); MEAN CORPUSCULAR VOLUME 88 fL (79.0-98.0); MONOCYTES # (AUTO) 0.1 K/uL (0.0-1.0); MONOCYTES % (AUTO) 2.7 % (1.7-9.3); NEUTROPHILS # (AUTO) 4.5 K/uL (1.8-7.7); NEUTROPHILS % (AUTO) 91.9 % (40.0-70.0); PLATELET COUNT (AUTO) 350 K/uL (130-430); RED BLOOD CELL COUNT(AUTO) 4.55 MIL/uL (4.2-6.2); WHITE BLOOD COUNT (AUTO) 4.9 K/uL (4.8-10.8)
[2020-04-26 07:43] LABS: ALANINE AMINOTRANSFERASE 40 U/L (12-78); ALBUMIN 2.2 g/dL (3.4-4.8); ANION GAP 6 (5-15); ASPARTATE AMINOTRANSFERASE 23 U/L (10-37); CALCIUM 8.4 mg/dL (8.4-11.0); CHLORIDE 103 mmol/L (98-107); CREATININE 0.74 mg/dL (0.55-1.30); GLUCOSE 320 mg/dL (70-99); POTASSIUM 3.9 mmol/L (3.5-5.1); SODIUM SERUM 136 mmol/L (136-145); TOTAL BILIRUBIN 0.3 mg/dL (0.0-1.0); UREA NITROGEN, BLOOD 23 mg/dL (8-21)
[2020-04-26 08:00] VITALS: BP_SYST 114
[2020-04-26 08:11] LABS: BILIRUBIN,DIRECT 0.1 mg/dL (0.0-0.3)
[2020-04-26] MEDS: AZITHROMYCIN 250 MG TABLET PO SCH (08:15)
[2020-04-26] MEDS: CHOLECALCIFEROL (VITAMIN D3) 2,000 UNIT TABLET PO SCH (08:15)
[2020-04-26] MEDS: ENOXAPARIN SODIUM 40 MG/0.4 ML SYRINGE SUBCUT SCH (08:15)
[2020-04-26] MEDS: ASCORBIC ACID 500 MG TABLET PO SCH ×3 (08:15→20:31)
--- NOTE | 2020-04-26 08:15 | NUR ---
OPENING NOTES/ ROUTINE MEDS PT AWAKE AND ALERT, SITTING UP EATING BREAKFAST. NONLABORED BREATHING NOTED, RECEIVING O2 AT 6LPM VIA OXYMIZER, TOLERATING WELL. IV LINE INTACT AND PATENT, NO SIGNS OF INFILTRATION NOTED, RECEIVING FLUIDS ORDERED PER MD. NO ACUTE DISTRESS NOTED. ALL NEEDS MET. CALL LIGHT IN REACH. FALL, ASPIRATION, AND ISOLATION PRECAUTIONS IN PLACE. CONTINUE TO MONITOR.
[2020-04-26 09:22] LABS: ERYTHROCYTE SEDIMENTATION RATE 28 MM/HR (0-15)
[2020-04-26] MEDS: NACL 0.9% 1,000 ML IV SCH ×2 (10:32→19:00)
--- NOTE | 2020-04-26 10:33 | NUR ---
ADMINISTERED IV FLUIDS ORDERED, TOLERATED WELL. CONTINUE TO MONITOR.
--- NOTE | 2020-04-26 11:30 | NUR ---
ROUNDS PT RESTING IN BED, CHEST RISE AND FALL NOTED. EASILY AWAKEN. CONTINUE TO MONITOR.
--- NOTE | 2020-04-26 11:30 | NUR ---
PT RECEIVING DIALYSIS AT THIS TIME. CONTINUE TO MONITOR. Addendum: 04/26/20 at 1144 by Carissa Holbrook RN NOTE ON WRONG PATIENT
[2020-04-26 12:00] VITALS: BP_SYST 141
--- NOTE | 2020-04-26 12:00 | NUR ---
VITAL SIGNS TAKEN AND STABLE. LUNCH SET AT BEDSIDE. NO ACUTE DISTRESS NOTED. ALL NEEDS MET. CALL LIGHT IN REACH. CONTINUE TO MONITOR.
[2020-04-26] MEDS: DECADRON 4 MG TABLET PO SCH (15:00)
--- NOTE | 2020-04-26 15:00 | NUR ---
ROUTINE MEDS ADMINISTERED ORDERED PER MD, EDUCATION GIVEN, TOLERATED WELL. CONTINUE TO MONITOR.
--- NOTE | 2020-04-26 15:01 | NUR ---
WEANED PT TO 5L ON OXYMIZER, O2 AT 96%, TOLERATING WELL. CONTINUE TO MONITOR.
[2020-04-26 16:23] VITALS: BP_SYST 122
[2020-04-26] MEDS: cefTRIAXone 1 GM in D5W 50 ML IV SCH (18:07)
--- NOTE | 2020-04-26 18:07 | NUR ---
routine meds administered as ordered per md, education given, tolerated well. continue to monitor.
--- NOTE | 2020-04-26 19:03 | NUR ---
CLOSING NOTES PT RESTING IN BED, CHEST RISE AND FALL NOTED. EASILY AWAKEN. NONLABORED BREATHING NOTED, RECEIVING O2 AT VIA OXYMIZER AT 5LPM. IV LINE INTACT AND PATENT, NO SIGNS OF INFILTRATION NOTED, FLUIDS RUNNING ORDERED PER MD. NO ACUTE DISTRESS NOTED. ALL NEEDS MET CALL LIGHT IN REACH. FALL AND ASPIRATION AND ISOLATION PRECAUTIONS IN PLACE. WILL ENDORSE TO NOC NURSE.
[2020-04-26 19:30] VITALS: BP_SYST 126
--- NOTE | 2020-04-26 19:30 | NUR ---
INITIAL NOTE PATIENT IS STABLE AND LAYING IN BED. NO S/S OF RESPIRATORY DISTRESS NOTED. CALL LIGHT IN REACH. PATIENT SUCCESSFULLY DEMONSTRATES USAGE OF CALL LIGHT. BED IS LOCKED, AND AT THE LOWEST POSITION. PATIENT EDUCATED ON BED ALARM, PT REFUSED. WILL CONTINUE TO MONITOR. PLAN OF CARE IS DISCUSSED WITH PATIENT. FALL, SAFETY, ASPIRATION, COVID, AND RESPIRATORY PRECAUTIONS WILL BE IN PLACE THROUGHOUT THE SHIFT.
--- NOTE | 2020-04-26 21:30 | NUR ---
PT REQUESTED FOR 2 APPLE SAUCE AT THIS TIME. PT TOLERATED WELL. NO S/S OF RESPIRATORY DISTRESS NOTED.
--- NOTE | 2020-04-26 23:30 | NUR ---
PT REQUESTED FOR 1 SANDWICH AT THIS TIME. PT TOLERATED WELL. NO S/S OF RESPIRATORY DISTRESS NOTED.
[2020-04-27] VITALS: BP_SYST 121
--- NOTE | 2020-04-27 01:30 | NUR ---
PT REQUESTED FOR 1 JELLO AT THIS TIME. PT TOLERATED WELL. NO S/S OF RESPIRATORY DISTRESS NOTED.
--- NOTE | 2020-04-27 07:21 | NUR ---
CLOSING NOTE PATIENT IS STABLE AND RESTING IN BED. NO S/S OF RESPIRATORY DISTRESS NOTED. CALL LIGHT IN REACH. BED IS LOCKED, AND AT THE LOWEST POSITION. FALL, SAFETY, ASPIRATION, COVID, AND RESPIRATORY PRECAUTIONS HAS BEEN IN PLACE THROUGHOUT THE SHIFT. SBAR REPORT IS ENDORSED TO AM NURSE.
[2020-04-27 08:00] VITALS: BP_SYST 126
--- NOTE | 2020-04-27 08:40 | NUR ---
OPENING NOTES/ ROUTINE MEDS/ SEEN BY DR. CRANDALL AT BEDSIDE PT AWAKE AND ALERT. NONLABORED BREATHING NOTED, RECEIVING O2 AT 5LPM VIA OXYMIZER, TOLERATING WELL. RECEIVED ORDERS FROM MD TO WEAN PT OFF O2, TITRATED PT TO 4LPM, TOLERATING WELL. IV LINE INTACT AND PATENT, NO SIGNS OF INFILTRATION NOTED, FLUIDS RUNNING ORDERED PER MD. NO ACUTE DISTRESS NOTED. ALL NEEDS MET. CALL LIGHT IN REACH. FALL, ASPIRATION, AND ISOLATION PRECAUTIONS IN PLACE. CONTINUE TO MONITOR.
[2020-04-27] MEDS: ASCORBIC ACID 500 MG TABLET PO SCH ×3 (08:42→20:43)
[2020-04-27] MEDS: CHOLECALCIFEROL (VITAMIN D3) 2,000 UNIT TABLET PO SCH (08:42)
[2020-04-27] MEDS: ENOXAPARIN SODIUM 40 MG/0.4 ML SYRINGE SUBCUT SCH (08:44)
--- NOTE | 2020-04-27 10:35 | NUR ---
ROUTINE MEDS ADMINISTERED ORDERED PER MD, EDUCATION GIVEN, TOLERATED WELL. WEANED PT TO 3L ON OXYGEN, O2 AT 97%, TOLERATING WELL, CONTINUE TO MONITOR.
--- NOTE | 2020-04-27 11:19 | NUR ---
PHYSICAL THERAPY CO-SIGN The Physical Therapy Progress Notes documented by Supervisor Curing Room have been reviewed. Reviewed/Co-Signed by: Balwinder Mitchell Documentation Done by: BILL GUTIERRES PTA Addendum: 04/27/20 at 1120 by Balwinder Mitchell PT Amended: Links added.
--- NOTE | 2020-04-27 11:20 | NUR ---
PHYSICAL THERAPY CO-SIGN The Physical Therapy Progress Notes documented by Turbine Engineer have been reviewed. Reviewed/Co-Signed by: Balwinder Mitchell Documentation Done by: BILL GUTIERRES PTA Addendum: 04/27/20 at 1120 by Balwinder Mitchell PT Amended: Links added.
[2020-04-27 12:00] VITALS: BP_SYST 131
--- NOTE | 2020-04-27 12:00 | NUR ---
VITAL SIGNS TAKEN AND SET LUNCH AT BEDSIDE. CONTINUE TO MONITOR.
[2020-04-27 12:41] LABS: ALBUMIN 2.3 g/dL (3.4-4.8); BILIRUBIN,DIRECT 0.1 mg/dL (0.0-0.3); C-REACTIVE PROTEIN QUANT 1.3 mg/dL (0-0.5); TOTAL BILIRUBIN 0.6 mg/dL (0.0-1.0)
[2020-04-27] MEDS: DECADRON 4 MG TABLET PO SCH (14:16)
--- NOTE | 2020-04-27 14:18 | NUR ---
routine meds administered as ordered per md, education given, tolerated well. pt requested applesauce and crackers, gave pt snacks requested. continue to monitor.
[2020-04-27 16:00] VITALS: BP_SYST 131
--- NOTE | 2020-04-27 17:23 | NUR ---
Nutrition F/U RD reviewed pt's current EMR record including diet Hx, physician notes, nursing notes, pertinent labs/meds/procedures, care trends, and care activity. Admission Dx: COVID Pneumonia PMH: Pt presents w/: COVID-19 Pneumonia, Acute Hypoxemic Respiratory Failure, Severe Malnutrition and possible DM per MD notes. SARS-CoV-2 Ag Rapid / Positive S/P 2 units convalescent plasma Current Diet Order/Nutrition Support: Subjective Info: RD bedside interview deferred d/t isolation precautions and PPE conservation efforts. RD spoke w/ pt via phone call. Pt reported good appetite, and no difficulty chewing/swallowing. Pt attested to front partial use. No food allergies/supplementation reported. Per nursing notes, pt requested applesauce and crackers this afternoon. Pt denied any N/V/C/D. Last BM was yesterday per pt report. Pt reported that he had received insulin shots in the past; pt is not currently on any insulin during hospital LOS. RD spoke w/ pt's primary RN via phone call to relay this information -- RN stated she would notify physician. Pt is likely meeting nutritional needs, but would benefit from diabetic-friendly diet to better control BG levels. Pertinent Medications Lovenox, Remdesivir, Zinc, VIT C, Decadron Pertinent Labs 04/26: Na 139 WNL (improved), K 3.9 WNL (improved), BG 320 H (trending up), BUN 23, CRE 0.74 WNL, HgA1c 8.4% H Skin Integrity Comment: Pako scale: 21. No skin issues noted. Current % PO Good -- 89% average x7 meals Estimated Energy Expenditure (kcals/day) 0034-9371 Kcal/day (30-35 kcal/kg CBW for acute state) Estimated Protein Required (g/day) 67-100gm/day (1-1.5 gm/kg CBW for acute state) Estimated Fluid Required (l/day) 1.7-2 L/day (25-30 kcal/kg CBW for Geriatric maintenance) Problem/Etiology/Signs/Symptoms Inadequate protein-energy intake r/t varied appetite 2/2 medical condition AEB PO intake meets <75% of estimated needs. *improving Altered nutrition-related labs related to endocrine dysfunction as evidenced by elevated BG and HgA1c lab values. *new Expected Outcomes/Goals Monitor appetite and PO intake w/ goal of pt meeting more than 75% of estimated nutritional needs, labs trending WNL, normal GI function, skin integrity/wt maintenance. Dietitian Recommendations * [facility] w/ Glucerna TID (ONS provides 660 kcal/day, 30 gm protein/day) * Consider endocrinology consult d/t elevated BG (no current insulin coverage) Follow Up High Risk: F/U in 2-3 days
--- NOTE | 2020-04-27 17:32 | NUR ---
Dietitian Recommendations * Recommend [facility] diet w/ Glucerna TID (ONS provides 660 kcal/day, 30 gm protein/day) * Consider endocrinology consult d/t elevated BG (no current insulin coverage) LP, RD Please refer to Nutrition F/U for details.
[2020-04-27] MEDS: cefTRIAXone 1 GM in D5W 50 ML IV SCH (18:33)
--- NOTE | 2020-04-27 18:35 | NUR ---
ROUTINE MEDS ADMINISTERED ORDERED PER MD, EDUCATION GIVEN, TOLERATED WELL. CONTINUE TO MONITOR
--- NOTE | 2020-04-27 19:01 | NUR ---
CLOSING NOTES PT AWAKE AND ALERT, NONLABORED BREATHING NOTED, RECEIVING O2 AT 2LPM, TOLERATING WELL. SITTING UP IN BED EATING DINNER. IV LINE INTACT AND PATENT, NO SIGNS OF INFILTRATION NOTED. NO ACUTE DISTRESS NOTED. ALL NEEDS MET. CALL LIGHT IN REACH. FALL, ASPIRATION, AND ISOLATION PRECAUTIONS IN PLACE. WILL ENDORSE TO NOC NURSE.
--- NOTE | 2020-04-27 19:40 | NUR ---
INITIAL NOTE PT IS ON BED, ALERT, AWAKE, ORIENTED X 4. WATCHING TV. NO PAIN. NO SOB AT REST, PT IS ON O2 2L VIA OXYMIZER. IVF INFUSING TO RIGHT AC. NO SIGN OF INFILTRATION. NO SKIN BREAKDOWN. DISCUSS TO PT PLAN OF CARE AND HIS MEDICATION. DISCUSS ABOUT HIS COVID ISOLATION. PT VERBALIZED UNDERSTANDING. NEEDS ATTENDED. CALL LIGHT IN REACH, SIDE RAILS UP LOW BED POSITION AND ALARM COVID ISOLATION. WILL MONITOR. PT THROUGHOUT THE SHIFT.
[2020-04-27 20:41] VITALS: BP_SYST 107
[2020-04-27] MEDS: NACL 0.9% 1,000 ML IV SCH ×2 (20:43)
--- NOTE | 2020-04-27 22:00 | NUR ---
AWAKE, ALERT, WATCHING TV, NO SOB, NO PAIN, NEEDS ATTENDED. WILL MONITOR.
[2020-04-28] VITALS: BP_SYST 113
--- NOTE | 2020-04-28 | NUR ---
RESTING, COMFORTABLE. NO SOB, NO DENT. VITAL SIGN TAKEN AND RECORDED. NEEDS ATTENDED, CALL LIGHT IN REACH. WILL MONITOR.
--- NOTE | 2020-04-28 02:00 | NUR ---
SLEEEPING WITH HIGH BACK REST, NO PAIN, NO SOB, STABLE. IVF INFUSING WELL. WILL CONTINUE TO MONITOR.
--- NOTE | 2020-04-28 04:16 | NUR ---
SLEEPING, COMFORTABLE, NO SOB, NO PAIN, IVF INFUSING WELL. SAFETY PRECAUTION IN PLACE. COVID ISOLATION. WILL CONTINUE MONITOR.
--- NOTE | 2020-04-28 06:00 | NUR ---
RESTING QUIETLY WITH HIGH BACK REST, NO PAIN, NO SOB, STABLE. IVF INFUSING WELL. WILL CONTINUE TO MONITOR.
[2020-04-28 07:08] LABS: BASOPHILS % (AUTO) 0.1 % (0.0-2.0); EOSINOPHILS % (AUTO) 0.1 % (0.0-4.0); HEMATOCRIT 39.5 % (36-54); HEMOGLOBIN 13.5 g/dL (14.0-18.0); LYMPHOCYTES # (AUTO) 0.5 K/uL (1.0-5.5); LYMPHOCYTES % (AUTO) 8.3 % (20.5-51.5); MEAN CORPUSCULAR HEMOGLOBIN 30 pg (27-31); MEAN CORPUSCULAR HGB CONC 34 % (32-36); MEAN CORPUSCULAR VOLUME 88 fL (79.0-98.0); MONOCYTES # (AUTO) 0.3 K/uL (0.0-1.0); MONOCYTES % (AUTO) 4.3 % (1.7-9.3); NEUTROPHILS # (AUTO) 5.4 K/uL (1.8-7.7); NEUTROPHILS % (AUTO) 87.2 % (40.0-70.0); PLATELET COUNT (AUTO) 337 K/uL (130-430); RED BLOOD CELL COUNT(AUTO) 4.49 MIL/uL (4.2-6.2); RED CELL DISTRIBUTION WIDTH 12.8 % (9.0-15.0); WHITE BLOOD COUNT (AUTO) 6.2 K/uL (4.8-10.8)
--- NOTE | 2020-04-28 07:26 | NUR ---
CLOSING: PATIENT IS RESTING IN BED. STABLE, NO SIGNS OF RESPIRATORY DISTRESS. NO PAIN, IVF INFUSING WELL. BED IS LOCKED AND AT THE LOWEST LEVEL. COVID ISOLATION. NEED ATTENDED THE WHOLE SHIFT, SBAR REPORT GIVEN TO AM RN.
[2020-04-28 08:00] VITALS: BP_SYST 115
--- NOTE | 2020-04-28 08:00 | NUR ---
Initial notes Eating breakfast, denies any pain or discomfort, On o2 2L oximizer, tolerating so far. IVF infusing well. No acute distress noted. Will continue to monitor.
[2020-04-28 08:12] LABS: ANION GAP 6 (5-15); CALCIUM 8.3 mg/dL (8.4-11.0); CHLORIDE 98 mmol/L (98-107); CREATININE 0.86 mg/dL (0.55-1.30); GLUCOSE 271 mg/dL (70-99); SODIUM SERUM 132 mmol/L (136-145); UREA NITROGEN, BLOOD 21 mg/dL (8-21)
[2020-04-28] MEDS: ASCORBIC ACID 500 MG TABLET PO SCH ×2 (08:14→15:04)
[2020-04-28] MEDS: CHOLECALCIFEROL (VITAMIN D3) 2,000 UNIT TABLET PO SCH (08:15)
[2020-04-28] MEDS: ENOXAPARIN SODIUM 40 MG/0.4 ML SYRINGE SUBCUT SCH (08:16)
[2020-04-28 08:18] LABS: ERYTHROCYTE SEDIMENTATION RATE 22 MM/HR (0-15)
[2020-04-28] MEDS ORDERED: DEXA6TAB5 PO (09:31)
[2020-04-28] MEDS ORDERED: ASPI-862 PO (09:31)
[2020-04-28] MEDS ORDERED: ASCO500T20 PO (09:31)
[2020-04-28 09:41] LABS: C-REACTIVE PROTEIN QUANT 1.3 mg/dL (0-0.5)
[2020-04-28] MEDS: NACL 0.9% 1,000 ML IV SCH (10:00)
[2020-04-28 10:06] VITALS: BP_SYST 115
--- NOTE | 2020-04-28 10:30 | NUR ---
Notes- Watching tv, oxygen off, encourage to call if he feels short of breath. will monitor.
--- NOTE | 2020-04-28 11:00 | NUR ---
Notes- 02 sat at rest 92%. at this time.
[2020-04-28 12:00] VITALS: BP_SYST 110
--- NOTE | 2020-04-28 13:30 | NUR ---
Notes- Ambulates patient's to the bathroom, patient tolerated well, denies any shortness of breath, o2 sat is 93-94%.
[2020-04-28 14:44] VITALS: BP_SYST 115
[2020-04-28] MEDS: DECADRON 4 MG TABLET PO SCH (15:04)
--- NOTE | 2020-04-28 15:21 | NUR ---
CM Note: received dc order to home if able to wean off oxygen otherwise to set up to home oxygen. I discussed with LUCIAN Hong about pt's oxygen need r/t activity. Per the RN she removed the o2 nc at 11 am. Pt able to ambulate to restroom and in room on RA at various activity. The pt tolerated well, o2 sat was at 92-94% pending on activity. See Gely's notes. The pt does not meet the home oxygen criteria. Gely will notify dr. Weston for the dc w/o home oxygen.
[2020-04-28 15:47] VITALS: BP_SYST 125
--- NOTE | 2020-04-28 17:00 | NUR ---
discharge d/c pt home, ambulate with supervision. o2 sat is 94-95% in room air. patient denies any shortness of breath. discharge instruction and e-prescription given and discussed with patient. instructed to isolate for at least 1 more week. patient verbalize understanding. ivl removed.
== END 2020-04-28 17:00 | disposition home or self-care (01) | DRG 177 ==
LOC: SED 08:39 → STU 13:23
PROVIDERS: ADMIT General Practice; ATTEND General Practice
PROC: XW13325 Transfusion of Convalescent Plasma (Nonautologous) into Peripheral Vein, Percutaneous Approach, New Technology Group 5 (ICD-10-PCS; principal; 2020-04-21)
PROC: XW033E5 Introduction of Remdesivir Anti-infective into Peripheral Vein, Percutaneous Approach, New Technology Group 5 (ICD-10-PCS; 2020-04-21)
DX: U07.1 COVID-19 (principal); E43 Unspecified severe protein-calorie malnutrition; J12.89 Other viral pneumonia; J96.01 Acute respiratory failure with hypoxia; R79.82 Elevated C-reactive protein (CRP); Z68.21 Body mass index [BMI] 21.0-21.9, adult
CPT/HCPCS: 36415; 36430; 36600; 71045; 80048; 80053; 80076; 81003; 82248-TC; 82550-TC; 82728; 82803-TC; 83036; 83605; 83615-TC; 83735-TC; 83880; 84484; 85025; 85379; 85384-TC; 85610-TC; 85651-TC; 85730-TC; 86140; 86886; 86900; 86901; 87040-TC; 93005; 94760; 96365; 96366; 96367; 97110-GP; 97116-GP; 97163; 97530-GP; 99285; J0696; J1650; J2543; J3370; J7050; J7060; J8540; P9017; Q0144